=== PATIENT | female | born 1960 | race Caucasian/White ===

== ENCOUNTER 2018-04-18 07:54 | Day surgery (SDC) | payer MEDICARE ==
[2018-04-18] MEDS ORDERED: Depo-Medrol 40 MG/ML IM ONE (07:55)
[2018-04-18] MEDS ORDERED: Marcaine 0.5% SDV 10 ML IJ ONE (07:55)
[2018-04-18] MEDS ORDERED: DIPRIVAN 200 MG/20 ML IV ONE (07:55)
--- NOTE | 2018-04-18 12:28 | XRAY ---
Indication: Right hip/greater trochanter injection. Intraoperative fluoroscopy was provided for 17 seconds. 3 digital spot images submitted for interpretation demonstrates single needle tip projecting over the right femur neck. Small amount of contrast injected for needle tip placement. Correlate with intraoperative findings/report.
[2018-04-18] MEDS ORDERED: Lactated Ringers 1,000 ML IV ONE (12:36)
--- NOTE | 2018-04-18 12:45 | XRAY ---
17 seconds of fluoroscopy used in surgery for right hip/greater trochanter injection.
== END 2018-04-18 10:00 | disposition home or self-care (01) ==
LOC: SDC-PAIN 07:54
PROVIDERS: ATTEND Psychiatry & Neurology Pain Medicine
DX: M16.11 Unilateral primary osteoarthritis, right hip (principal); M70.61 Trochanteric bursitis, right hip
CPT/HCPCS: 20610; 73501; 76000; 82962; J1030; J2704; Q9966

== ENCOUNTER 2019-11-20 07:56 | Day surgery (SDC) | payer MEDICARE ==
[2019-11-20] MEDS ORDERED: Depo-Medrol 40 MG/ML IM ONE (07:57)
[2019-11-20] MEDS ORDERED: Marcaine 0.5% SDV 10 ML IM ONE (07:57)
[2019-11-20] MEDS ORDERED: Ketamine HCl 50 MG/ML ONE (09:57)
[2019-11-20] MEDS ORDERED: DIPRIVAN 200 MG/20 ML IV ONE (09:57)
--- NOTE | 2019-11-20 12:28 | XRAY ---
Indication: Right greater trochanter bursa and intra-articular injections. Intraoperative fluoroscopy was provided for 25 seconds. 2 digital spot images submitted for interpretation demonstrates needle tip projecting just lateral to the right greater trochanter and a second needle tip just lateral to the femur neck. Small amount of contrast injected for both needle tip placement. Correlate with intraoperative findings/report.
--- NOTE | 2019-11-20 14:36 | XRAY ---
25 seconds of fluoroscopy was used in surgery for a right greater trochanteric bursa injection and right intra-articular hip injection.
[2019-11-20] MEDS ORDERED: Lactated Ringers 2,000 ML IV ONE (14:52)
== END 2019-11-20 10:25 | disposition home or self-care (01) ==
LOC: SDC-PAIN 07:56
PROVIDERS: ATTEND Psychiatry & Neurology Pain Medicine
DX: M16.11 Unilateral primary osteoarthritis, right hip (principal); M70.61 Trochanteric bursitis, right hip; I12.9 Hypertensive chronic kidney disease with stage 1 through stage 4 chronic kidney disease, or unspecified chronic kidney disease; E11.22 Type 2 diabetes mellitus with diabetic chronic kidney disease; N18.2 Chronic kidney disease, stage 2 (mild); Z79.899 Other long term (current) drug therapy
CPT/HCPCS: 20610; 73502; 77002; 82962; J1030; J2704; Q9966

== ENCOUNTER 2020-12-16 07:35 | Day surgery (SDC) | payer MEDICARE ==
[2020-12-16] MEDS ORDERED: BUPIVACAINE 0.5% VIAL IJ ONE (07:36)
[2020-12-16] MEDS ORDERED: Depo-Medrol 40 MG/ML IM ONE (07:36)
[2020-12-16] MEDS ORDERED: DIPRIVAN 200 MG/20 ML IV ONE (09:24)
--- NOTE | 2020-12-16 16:06 | XRAY ---
40 seconds of fluoroscopy was used in surgery for a bilateral intra-articular and greater trochanteric bursas.
[2020-12-16] MEDS ORDERED: Lactated Ringers 1,000 ML IV ONE (17:29)
== END 2020-12-16 09:53 | disposition home or self-care (01) ==
LOC: SDC-PAIN 07:35
PROVIDERS: ATTEND Psychiatry & Neurology Pain Medicine
DX: M16.0 Bilateral primary osteoarthritis of hip (principal); M70.62 Trochanteric bursitis, left hip; M70.61 Trochanteric bursitis, right hip; I12.9 Hypertensive chronic kidney disease with stage 1 through stage 4 chronic kidney disease, or unspecified chronic kidney disease; E11.22 Type 2 diabetes mellitus with diabetic chronic kidney disease; N18.30 Chronic kidney disease, stage 3 unspecified; Z79.899 Other long term (current) drug therapy
CPT/HCPCS: 20610; 73522; 77002; 82947; J1030; J2704; Q9966

== ENCOUNTER 2021-03-03 09:56 | Day surgery (SDC) | payer MEDICARE ==
[2021-03-03] MEDS ORDERED: BUPIVACAINE 0.5% VIAL IJ ONE (09:57)
[2021-03-03] MEDS ORDERED: Depo-Medrol 80 MG/ML IM ONE (09:57)
[2021-03-03] MEDS ORDERED: DIPRIVAN 200 MG/20 ML IV ONE (11:50)
--- NOTE | 2021-03-03 13:20 | XRAY ---
Indication: Right hip and greater trochanter bursa injections. Intraoperative fluoroscopy provided for 23 seconds. 2 digital spot images submitted for interpretation demonstrates needle tip projecting lateral to the right femur neck. Second needle tip lateral to the right greater trochanter. Small amount of contrast injected for both needle tip placement. Correlate with intraoperative findings/report.
--- NOTE | 2021-03-03 14:23 | XRAY ---
23 seconds of fluoroscopy was used in surgery for a right intra-articular and greater trochanteric bursa injections.
[2021-03-03] MEDS ORDERED: Lactated Ringers 1,000 ML IV ONE (17:26)
== END 2021-03-03 12:17 | disposition home or self-care (01) ==
LOC: SDC-PAIN 09:56
PROVIDERS: ATTEND Psychiatry & Neurology Pain Medicine
DX: M70.61 Trochanteric bursitis, right hip (principal); M16.11 Unilateral primary osteoarthritis, right hip; E11.9 Type 2 diabetes mellitus without complications; Z79.899 Other long term (current) drug therapy
CPT/HCPCS: 20610; 73502; 77002; 82947; J1040; J2704; Q9966

== ENCOUNTER 2021-05-26 06:56 | Day surgery (SDC) | payer MEDICARE ==
[2021-05-26] MEDS ORDERED: Depo-Medrol 40 MG/ML IM ONE (06:57)
[2021-05-26] MEDS ORDERED: BUPIVACAINE 0.5% VIAL IJ ONE (06:57)
[2021-05-26] MEDS ORDERED: DIPRIVAN 200 MG/20 ML IV ONE (06:57)
[2021-05-26] MEDS ORDERED: Ketamine HCl 50 MG/ML ONE (07:54)
[2021-05-26] MEDS ORDERED: XYLOCAINE 1% HCL 20 ML MDV ONE (08:11)
[2021-05-26] MEDS ORDERED: Lactated Ringers 1,000 ML IV ONE (09:21)
--- NOTE | 2021-05-26 10:10 | XRAY ---
Indication: Right hip and greater trochanter bursa injection. Intraoperative fluoroscopy provided for 21 seconds. 2 digital spot image submitted for interpretation demonstrates needle tip projecting lateral to right femur neck and lateral to greater trochanter. Small amount of contrast injected for both needle tip placement. Correlate with intraoperative findings/report.
--- NOTE | 2021-05-26 10:43 | XRAY ---
21 seconds of fluoroscopy was used in surgery for a right hip intra-articular and greater trochanteric bursa injection.
== END 2021-05-26 08:36 | disposition home or self-care (01) ==
LOC: SDC-PAIN 06:56
PROVIDERS: ATTEND Psychiatry & Neurology Pain Medicine
DX: M16.11 Unilateral primary osteoarthritis, right hip (principal); M70.61 Trochanteric bursitis, right hip; I10 Essential (primary) hypertension; Z79.899 Other long term (current) drug therapy
CPT/HCPCS: 20610; 73502; 77002; 82947; J1030; J2704; Q9966

== ENCOUNTER 2021-08-25 07:45 | Day surgery (SDC) | payer MEDICARE ==
[2021-08-25] MEDS ORDERED: Depo-Medrol 40 MG/ML IM ONE (07:46)
[2021-08-25] MEDS ORDERED: BUPIVACAINE 0.5% VIAL IJ ONE (07:46)
[2021-08-25] MEDS ORDERED: DIPRIVAN 200 MG/20 ML IV ONE (09:26)
[2021-08-25] MEDS ORDERED: Xylocaine-Mpf 2% 5 Ml Vial ONE (09:26)
[2021-08-25] MEDS ORDERED: Lactated Ringers 1,000 ML IV ONE (09:45)
--- NOTE | 2021-08-25 10:28 | XRAY ---
Indication: Right SI joint injection. Intraoperative fluoroscopy provided for 13 seconds. 2 digital spot image submitted for interpretation demonstrates posterior needle tip projecting over the inferior right SI joint. Correlate with intraoperative findings/report.
--- NOTE | 2021-08-25 10:32 | XRAY ---
13 seconds of fluoroscopy was used in surgery for a right SI joint injection.
== END 2021-08-25 09:50 | disposition home or self-care (01) ==
LOC: SDC-PAIN 07:45
PROVIDERS: ATTEND Psychiatry & Neurology Pain Medicine
DX: M46.1 Sacroiliitis, not elsewhere classified (principal); I10 Essential (primary) hypertension; E11.9 Type 2 diabetes mellitus without complications; Z79.899 Other long term (current) drug therapy
CPT/HCPCS: 27096; 72020; 77002; 82947; G0260; J1030; J2704

== ENCOUNTER 2022-07-13 06:52 | Day surgery (SDC) | payer MEDICARE ==
[2022-07-13] MEDS ORDERED: Depo-Medrol 40 MG/ML IM ONE (06:53)
[2022-07-13] MEDS ORDERED: BUPIVACAINE 0.5% VIAL IJ ONE (06:53)
[2022-07-13] MEDS ORDERED: DIPRIVAN 200 MG/20 ML IV ONE (08:05)
[2022-07-13] MEDS ORDERED: Xylocaine-Mpf 2% 5 Ml Vial ONE (08:09)
--- NOTE | 2022-07-13 09:55 | XRAY ---
Indication: Bilateral hip and bilateral greater trochanter bursa injections. Intraoperative fluoroscopy provided for 34 seconds. 4 digital spot images submitted for interpretation demonstrates needle tips projecting lateral to the left/right femur necks and left/right greater trochanters. Small amount of contrast injected for all 4 needle tip placement. Correlate with intraoperative findings/report.
--- NOTE | 2022-07-13 10:00 | XRAY ---
34 seconds of fluoroscopy was used in surgery for a bilateral greater trochanteric and intra-articular bursa hip injection.
[2022-07-13] MEDS ORDERED: Lactated Ringers 1,000 ML IV ONE (13:13)
== END 2022-07-13 08:40 | disposition home or self-care (01) ==
LOC: SDC-PAIN 06:52
PROVIDERS: ATTEND Psychiatry & Neurology Pain Medicine
DX: M16.0 Bilateral primary osteoarthritis of hip (principal); M70.62 Trochanteric bursitis, left hip; M70.61 Trochanteric bursitis, right hip; Z79.899 Other long term (current) drug therapy
CPT/HCPCS: 20610; 73522; 76942; 77002; 82947; J1030; J2704; Q9966

== ENCOUNTER 2022-12-28 06:47 | Day surgery (SDC) | payer MEDICARE ==
[2022-12-28] MEDS ORDERED: BUPIVACAINE 0.5% VIAL IJ ONE (06:48)
[2022-12-28] MEDS ORDERED: Depo-Medrol 40 MG/ML IM ONE (06:48)
[2022-12-28] MEDS ORDERED: DIPRIVAN 200 MG/20 ML IV ONE (08:03)
[2022-12-28] MEDS ORDERED: Xylocaine-Mpf 2% 5 Ml Vial ONE (08:07)
--- NOTE | 2022-12-28 10:31 | XRAY ---
Indication: Bilateral SI joint injection. Intraoperative fluoroscopy provided for 12 seconds. 4 digital spot images submitted for interpretation demonstrates posterior needle tip projecting over the expected left and right SI joint. Correlate with intraoperative findings/report.
--- NOTE | 2022-12-28 11:33 | XRAY ---
12 seconds of fluoroscopy was used in surgery for a bilateral sacroiliac joint injection.
[2022-12-28] MEDS ORDERED: Lactated Ringers 1,000 ML IV ONE (12:40)
== END 2022-12-28 08:33 | disposition home or self-care (01) ==
LOC: SDC-PAIN 06:47
PROVIDERS: ATTEND Psychiatry & Neurology Pain Medicine
DX: M46.1 Sacroiliitis, not elsewhere classified (principal); Z79.899 Other long term (current) drug therapy
CPT/HCPCS: 01992; 27096; 72202; 77002; 82947; G0260; J1030; J2704

== ENCOUNTER 2023-01-26 06:44 | Day surgery (SDC) | payer MEDICARE ==
[2023-01-26] MEDS ORDERED: Depo-Medrol 40 MG/ML IM ONE (06:45)
[2023-01-26] MEDS ORDERED: BUPIVACAINE 0.5% VIAL IJ ONE (06:45)
[2023-01-26] MEDS ORDERED: DIPRIVAN 200 MG/20 ML IV ONE (08:04)
[2023-01-26] MEDS ORDERED: Xylocaine-Mpf 2% 5 Ml Vial ONE (08:17)
[2023-01-26] MEDS ORDERED: Lactated Ringers 1,000 ML IV ONE (08:55)
--- NOTE | 2023-01-26 09:50 | XRAY ---
Indication: Bilateral ischial bursa injection. Intraoperative fluoroscopy provided for 21 seconds. 2 digital spot images submitted for interpretation demonstrates needle tip projecting inferior to the left and right ischial tuberosities. Small amount of contrast injected for both needle tip placement. Correlate with intraoperative findings/report.
--- NOTE | 2023-01-26 10:03 | XRAY ---
21 seconds of fluoroscopy was used in surgery for a bilateral ischial bursa injection.
== END 2023-01-26 08:40 | disposition home or self-care (01) ==
LOC: SDC-PAIN 06:44
PROVIDERS: ATTEND Psychiatry & Neurology Pain Medicine
DX: M70.62 Trochanteric bursitis, left hip (principal); M70.61 Trochanteric bursitis, right hip; Z79.899 Other long term (current) drug therapy
CPT/HCPCS: 20610; 72170; 77002; 82947; J1030; J2704; Q9966

== ENCOUNTER 2023-07-13 06:57 | Day surgery (SDC) | payer MEDICARE ==
[2023-07-13] MEDS ORDERED: Decadron 4 MG INJ IV ONE (06:58)
[2023-07-13] MEDS ORDERED: Depo-Medrol 40 MG/ML IM ONE (06:58)
[2023-07-13] MEDS ORDERED: BUPIVACAINE 0.5% VIAL IJ ONE (06:58)
[2023-07-13] MEDS ORDERED: XYLOCAINE-MPF 1% 5ML SDV IJ ONE (06:58)
[2023-07-13] MEDS ORDERED: DIPRIVAN 200 MG/20 ML IV ONE (08:22)
[2023-07-13] MEDS ORDERED: Xylocaine-Mpf 2% 5 Ml Vial ONE (08:23)
--- NOTE | 2023-07-13 10:55 | XRAY ---
Indication: Bilateral piriformis and ischial bursa injection. Intraoperative fluoroscopy provided for 43 seconds. 5 digital spot image submitted for interpretation demonstrates posterior needle tip projecting over left/right piriformis and inferior to left/right ischial tuberosities. Small amount of contrast injected for all needle tip. Correlate with intraoperative findings/report.
--- NOTE | 2023-07-13 11:20 | XRAY ---
43 seconds of fluoroscopy was used in surgery for a bilateral piriformis and ischial bursa injection.
[2023-07-13] MEDS ORDERED: Lactated Ringers 1,000 ML IV ONE (12:03)
== END 2023-07-13 09:07 | disposition home or self-care (01) ==
LOC: SDC-PAIN 06:57
PROVIDERS: ATTEND Psychiatry & Neurology Pain Medicine
DX: M79.18 Myalgia, other site (principal); E11.9 Type 2 diabetes mellitus without complications; M70.62 Trochanteric bursitis, left hip; M70.61 Trochanteric bursitis, right hip
CPT/HCPCS: 20552; 20610; 72170; 77002; 82947; J1030; J1100; J2704; Q9966

== ENCOUNTER 2023-12-06 10:57 | Day surgery (SDC) | payer MEDICARE ==
[2023-12-06] MEDS ORDERED: DIPRIVAN 200 MG/20 ML IV ONE (12:41)
[2023-12-06] MEDS ORDERED: Xylocaine-Mpf 2% 5 Ml Vial ONE (12:45)
[2023-12-06] MEDS ORDERED: Lactated Ringers 1,000 ML IV ONE (12:57)
--- NOTE | 2023-12-06 14:09 | XRAY ---
Indication: Bilateral ischial bursa injections. Intraoperative fluoroscopy provided for 26 seconds. 2 digital spot images submitted for interpretation demonstrates posterior needle tips projecting over the left and right inferior ischial tuberosities. Small amount of contrast injected for both needle tip placement. Correlate with intraoperative findings/report.
--- NOTE | 2023-12-06 14:13 | XRAY ---
26 seconds of fluoroscopy was used in surgery for a bilateral ischial bursa injection.
== END 2023-12-06 13:10 | disposition home or self-care (01) ==
LOC: SDC-PAIN 10:57
PROVIDERS: ATTEND Psychiatry & Neurology Pain Medicine
DX: M70.62 Trochanteric bursitis, left hip (principal); M70.61 Trochanteric bursitis, right hip; E11.9 Type 2 diabetes mellitus without complications
CPT/HCPCS: 20610; 72170; 77002; 82947; J2704; Q9966

== ENCOUNTER 2024-06-12 06:55 | Day surgery (SDC) | payer MEDICARE, OTHER ==
[2024-06-12] MEDS ORDERED: propofoL IV ONE (08:28)
[2024-06-12] MEDS ORDERED: Xylocaine-Mpf 2% 5 Ml Vial ONE (08:29)
--- NOTE | 2024-06-12 10:07 | XRAY ---
Indication: Bilateral hip and greater trochanter bursa. Intraoperative fluoroscopy provided for 28 seconds. 5 digital spot image submitted for interpretation demonstrates needle tips projecting lateral to left/right femur necks and left/right greater trochanters. Small amount of contrast injected for all needle tip placement. Correlate with intraoperative findings/report.
--- NOTE | 2024-06-12 10:41 | XRAY ---
28 seconds of fluoroscopy was used in surgery for a bilateral hip and greater trochanteric bursa injection.
== END 2024-06-12 09:03 | disposition home or self-care (01) ==
LOC: SDC-PAIN 06:55
PROVIDERS: ATTEND Psychiatry & Neurology Pain Medicine
DX: M16.0 Bilateral primary osteoarthritis of hip (principal); M70.62 Trochanteric bursitis, left hip; M70.61 Trochanteric bursitis, right hip; E11.9 Type 2 diabetes mellitus without complications
CPT/HCPCS: 20610; 73522; 77002; 82947; J2704; Q9966

== ENCOUNTER 2024-09-19 07:01 | Day surgery (SDC) | payer MEDICARE, OTHER ==
[2024-09-19] MEDS ORDERED: BUPIVACAINE 0.5% VIAL IJ ONE (07:02)
[2024-09-19] MEDS ORDERED: Depo-Medrol 40 MG/ML IM ONE (07:02)
[2024-09-19] MEDS ORDERED: Xylocaine-Mpf 2% 5 Ml Vial ONE (08:42)
[2024-09-19] MEDS ORDERED: propofoL IV ONE (08:42)
--- NOTE | 2024-09-19 19:25 | XRAY ---
26 seconds of fluoroscopy was used in surgery for a bilateral hip and greater trochanteric bursa injection.
--- NOTE | 2024-09-19 19:45 | XRAY ---
Indication: Bilateral hip and greater trochanter bursa injection. Intraoperative fluoroscopy provided for 26 seconds. 5 digital spot image submitted for interpretation demonstrates needle tips projecting lateral to left/right femur necks and left/right greater trochanters. Small amount of contrast injected for needle tip placement. Correlate with intraoperative findings/report.
== END 2024-09-19 09:11 | disposition home or self-care (01) ==
LOC: SDC-PAIN 07:01
PROVIDERS: ATTEND Psychiatry & Neurology Pain Medicine
DX: M16.0 Bilateral primary osteoarthritis of hip (principal); M70.62 Trochanteric bursitis, left hip; M70.61 Trochanteric bursitis, right hip; E11.9 Type 2 diabetes mellitus without complications
CPT/HCPCS: 20610; 73522; 77002; 82947; J2704; Q9966

== ENCOUNTER 2025-03-13 15:24 | Emergency (ER) | payer MEDICARE, OTHER ==
--- NOTE | 2025-03-13 15:39 | ERPHSYRPT ---
- History of Present Illness Time Seen by Provider: 03/13/25 15:39 Source: patient, family Exam Limitations: no limitations Physician History: This is a 64-year-old white female patient who presents to the emergency department accompanied by significant other and is a patient of Dr. Healy with complaint of generalized weakness and bodyaches with associated nausea runny nose and mild abdominal cramping diffusely. She has not had any vomiting or diarrhea symptoms. She denies cough. She denies shortness of breath. She denies chest pain. He has not been exposed to anyone with similar symptoms. Timing/Duration: week(s) (2) Severity: mild Associated Symptoms: nausea, abdominal pain (Mild diffuse cramping), weakness, No shortness of breath, No chest pain Allergies/Adverse Reactions: erythromycin base Allergy (Verified 03/13/25 15:44) nitrofurantoin [From Macrobid] Allergy (Verified 03/13/25 15:44) Sulfa (Sulfonamide Antibiotics) Allergy (Verified 03/13/25 15:44) metoclopramide [From Reglan] Adverse Reaction (Verified 03/13/25 15:44) Home Medications: Alirocumab [Praluent Pen] 150 mg SQ WEEKLY 03/13/25 [History] Ezetimibe 10 mg [Zetia 10 MG] 10 mg PO DAILY 03/13/25 [History] Fluoxetine HCl 60 mg PO DAILY 03/13/25 [History] Losartan Potassium [Cozaar] 25 mg PO DAILY 03/13/25 [History] Oxycodone / APAP 10/325 mg [Oxycodone-Acetaminophen 10-325] 1 tablet PO TID 03/13/25 [History] Prochlorperazine Maleate 10 mg PO TID PRN 03/13/25 [History] Ropinirole HCl 3 mg PO DAILY 03/13/25 [History] Tirzepatide [Mounjaro] 15 mg SQ WEEKLY 03/13/25 [History] hydrOXYzine HCL [Hydroxyzine HCl] 50 mg PO DAILY 03/13/25 [History] Travel Risk - International Travel Have you traveled outside of the country in past 3 weeks: No - Emerging Infectious Disease Are you exhibiting symptoms associated with any current EIDs: Yes Symptoms: Abdominal Pain (Mild diffuse cramping), Headaches/Body Aches/, Other (Please Comment) (Nausea) - Review of Systems Constitutional: Weakness Eyes: No Symptoms Ears, Nose, & Throat: No Symptoms Respiratory: No Symptoms Abdominal/Gastrointestinal: Abdominal Pain (Mild diffuse cramping), Nausea, Appetite Changes, No Vomiting, No Diarrhea, No Constipation Genitourinary Symptoms: No Symptoms Musculoskeletal: Arthralgias, Myalgias Skin: No Symptoms Neurological: No Symptoms Psychological: No Symptoms Endocrine: No Symptoms Hematologic/Lymphatic: No Symptoms Immunological/Allergic: No Symptoms All Other Systems: Reviewed and Negative - Past Medical History Pertinent Past Medical History: Yes - Nursing Vital Signs Nursing Vital Signs: Initial Vital Signs Temperature 98 F 03/13/25 15:31 Pulse Rate 80 03/13/25 15:31 Respiratory Rate 12 03/13/25 15:31 Blood Pressure 128/91 03/13/25 15:31 O2 Sat by Pulse Oximetry 98 03/13/25 15:31 Pain Scale Pain Intensity 8 - Physical Exam General Appearance: no apparent distress, alert, anxiety, thin Eye Exam: PERRL/EOMI, eyes nml inspection Ears, Nose, Throat Exam: normal ENT inspection, moist mucous membranes Neck Exam: normal inspection, non-tender, supple, full range of motion Respiratory Exam: normal breath sounds, lungs clear, airway intact, No chest tenderness, No respiratory distress Cardiovascular Exam: regular rate/rhythm, normal heart sounds, normal peripheral pulses Gastrointestinal/Abdomen Exam: soft, normal bowel sounds, other (No significant tenderness on exam), No guarding, No rebound Pelvic Exam: not done Rectal Exam: not done Back Exam: normal inspection, normal range of motion, No CVA tenderness, No vertebral tenderness Extremity Exam: normal inspection, normal range of motion, pelvis stable Neurologic Exam: alert, oriented x 3, cooperative, 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 No acute ischemic changes on today's twelve-lead EKG.) Ordered Tests: Active Orders 24 hr Category Date Time Status [employer] Supervisor STAT Care 03/13/25 15:58 Active EKG-ER Only STAT Care 03/13/25 15:58 Active IV Insertion STAT Care 03/13/25 15:58 Active Pulse Oximetry (ED) STAT Care 03/13/25 15:58 Active CBC W DIFF Stat Lab 03/13/25 16:10 Completed CMP Stat Lab 03/13/25 16:10 Completed CULTURE,URINE Stat Lab 03/13/25 15:58 Received MAGNESIUM Stat Lab 03/13/25 16:10 Completed MONO SCREEN Stat Lab 03/13/25 16:10 Completed TROPONIN Q4H Lab 03/13/25 16:10 Completed TROPONIN Q4H Lab 03/13/25 20:00 Ordered TROPONIN Q4H Lab 03/14/25 00:00 Ordered UA W/RFX UR CULTURE Stat Lab 03/13/25 15:58 Completed Medication Summary Discontinued Medications Generic Name Dose Route Start Last Admin Trade Name Freq PRN Reason Stop Dose Admin Sodium Chloride 1,000 mls @ 999 mls/hr 03/13/25 15:58 03/13/25 17:46 Sodium Chloride 0.9% 1000 Ml IV 03/13/25 16:58 Infused .Q1H1M STA Infusion Sodium Chloride Confirm 03/13/25 16:09 Sodium Chloride 0.9% 1000 Ml Administered 03/13/25 16:10 Dose 1,000 mls @ ud .ROUTE .STK-MED ONE Lab/Rad Data: Laboratory Result Diagrams 03/13/25 16:10 03/13/25 16:10 Laboratory Results 03/13/25 03/13/25 03/13/25 Range/Units 16:12 16:10 16:10 WBC (3.98-10.04) x10^3/uL RBC (3.93-5.22) x10^6/uL Hgb (11.2-15.7) g/dL Hct (34.1-44.9) % MCV (79.4-94.8) fL MCH (25.6-32.2) pg MCHC (32.2-35.5) g/dL RDW (11.7-14.4) % Plt Count (182-369) x10^3/uL MPV (9.4-12.3) fL Gran % (34.0-71.1) % Immature Gran % (Auto) (0.001-0.429) % Nucleat RBC Rel Count (0.00-0.2) % Eos # (Auto) (0.04-0.36) x10^3/uL Immature Gran # (Auto) (0.001-0.031) x10^3u/L Absolute Lymphs (auto) (1.18-3.74) x10^3/uL Absolute Monos (auto) (0.24-0.86) x10^3/uL Absolute Nucleated RBC (0.00-0.012) x10^3u/L Lymphocytes % (19.3-51.7) % Monocytes % (4.7-12.5) % Eosinophils % (0.7-5.8) % Basophils % (0.1-1.2) % Absolute Granulocytes (1.56-6.13) x10^3/uL Basophils # (0.01-0.08) x10^3/uL Sodium (135-145) mmol/L Potassium (3.5-5.1) mmol/L Chloride (98-107) mmol/L Carbon Dioxide (22-30) mmol/L Anion Gap (5-15) MEQ/L BUN (7-17) mg/dL Creatinine (0.52-1.04) mg/dL Estimated GFR ML/MIN Glucose (74-106) mg/dL Calcium (8.4-10.2) mg/dL Magnesium (1.6-2.3) mg/dL Total Bilirubin (0.2-1.3) mg/dL AST (14-36) U/L ALT (0-35) U/L Alkaline Phosphatase (38-126) U/L Troponin I < 0.012 (0.000-0.033) ng/mL Serum Total Protein (6.3-8.2) g/dL Albumin (3.5-5.0) g/dL Urine Color (Yellow) Urine Appearance (Clear) Urine pH (4.6-8.0) Ur Specific Murdock (1.005-1.030) Urine Protein (Negative) Urine Glucose (UA) (Negative) mg/dL Urine Ketones (Negative) Urine Blood (Negative) Urine Nitrite (Negative) Urine Bilirubin (Negative) Urine Urobilinogen (0.2) mg/dL Ur Leukocyte Esterase (Negative) U Hyaline Cast (Auto) (0-2) /LPF Urine Microscopic RBC (0-5) /HPF Urine Microscopic WBC (0-5) /HPF Ur Epithelial Cells (None Seen) /HPF Urine Bacteria (None Seen) /HPF Urine Culture Reflexed (NO) Monoscreen NEGATIVE (NEGATIVE) Influenza Type A Ag NEGATIVE (NEGATIVE) Influenza Type B Ag NEGATIVE (NEGATIVE) RSV (PCR) NEGATIVE (NEGATIVE) SARS-CoV-2 (PCR) NEGATIVE (NEGATIVE) 03/13/25 03/13/25 03/13/25 Range/Units 16:10 16:10 15:58 WBC 8.3 (3.98-10.04) x10^3/uL RBC 5.25 H (3.93-5.22) x10^6/uL Hgb 15.4 (11.2-15.7) g/dL Hct 46.3 H (34.1-44.9) % MCV 88.2 (79.4-94.8) fL MCH 29.3 (25.6-32.2) pg MCHC 33.3 (32.2-35.5) g/dL RDW 13.3 (11.7-14.4) % Plt Count 291 (182-369) x10^3/uL MPV 10.8 (9.4-12.3) fL Gran % 65.5 (34.0-71.1) % Immature Gran % (Auto) 0.5 H (0.001-0.429) % Nucleat RBC Rel Count 0.0 (0.00-0.2) % Eos # (Auto) 0.10 (0.04-0.36) x10^3/uL Immature Gran # (Auto) 0.04 H (0.001-0.031) x10^3u/L Absolute Lymphs (auto) 2.00 (1.18-3.74) x10^3/uL Absolute Monos (auto) 0.66 (0.24-0.86) x10^3/uL Absolute Nucleated RBC 0.00 (0.00-0.012) x10^3u/L Lymphocytes % 24.2 (19.3-51.7) % Monocytes % 8.0 (4.7-12.5) % Eosinophils % 1.2 (0.7-5.8) % Basophils % 0.6 (0.1-1.2) % Absolute Granulocytes 5.40 (1.56-6.13) x10^3/uL Basophils # 0.05 (0.01-0.08) x10^3/uL Sodium 137 (135-145) mmol/L Potassium 3.6 (3.5-5.1) mmol/L Chloride 105 (98-107) mmol/L Carbon Dioxide 18 L (22-30) mmol/L Anion Gap 17.6 H (5-15) MEQ/L BUN 34 H (7-17) mg/dL Creatinine 2.07 H (0.52-1.04) mg/dL Estimated GFR 26.1 ML/MIN Glucose 167 H (74-106) mg/dL Calcium 10.6 H (8.4-10.2) mg/dL Magnesium 1.7 (1.6-2.3) mg/dL Total Bilirubin 0.70 (0.2-1.3) mg/dL AST 45 H (14-36) U/L ALT 70 H (0-35) U/L Alkaline Phosphatase 100 (38-126) U/L Troponin I (0.000-0.033) ng/mL Serum Total Protein 8.6 H (6.3-8.2) g/dL Albumin 4.7 (3.5-5.0) g/dL Urine Color Yellow (Yellow) Urine Appearance Clear (Clear) Urine pH 5.5 (4.6-8.0) Ur Specific [place] 1.020 (1.005-1.030) Urine Protein 30 (Negative) Urine Glucose (UA) Negative (Negative) mg/dL Urine Ketones Trace A (Negative) Urine Blood Negative (Negative) Urine Nitrite Negative (Negative) Urine Bilirubin Negative (Negative) Urine Urobilinogen 0.2 (0.2) mg/dL Ur Leukocyte Esterase Moderate A (Negative) U Hyaline Cast (Auto) None Seen (0-2) /LPF Urine Microscopic RBC 0-2 (0-5) /HPF Urine Microscopic WBC 11-20 A (0-5) /HPF Ur Epithelial Cells Few (None Seen) /HPF Urine Bacteria Rare A (None Seen) /HPF Urine Culture Reflexed YES (NO) Monoscreen (NEGATIVE) Influenza Type A Ag (NEGATIVE) Influenza Type B Ag (NEGATIVE) RSV (PCR) (NEGATIVE) SARS-CoV-2 (PCR) (NEGATIVE) - Progress Progress: improved, re-examined Progress Note: 03/13/25 16:19 My medical decision making and the assignment of moderate complexity of this patient's medical issue today is based on review of the patient's past medical history, review of the patient's medication list, review of the patient drug allergy list, history of present illness and physical findings on examination. The workup in this patient includes placement of intravenous line, infusion normal saline solution, infusion of Zofran, CBC, CMP, magnesium level, urinalysis, twelve-lead EKG viral swabs, monotest, troponin level. Differential diagnosis includes was not limited to electrolyte abnormalities, anemia, dehydration, urinary tract infection, arrhythmia, myocardial infarction, viral illness 03/13/25 18:39 I interpreted the patient's laboratory data results. Based on laboratory data results, the patient does appear to have chronic renal disease. She has a urinary tract infection and there was trace dehydration present. Her viral swabs are negative. No other acute, emergent medical findings based on her laboratory data results. Counseled pt/family regarding: lab results, diagnosis, need for follow-up Medical Desision Making - Independent Historian Additional History obtained from: Spouse - Diagnostic Testing Diagnostic test were ordered, analyzed, and reviewed by me: Yes - Risk of complications Low Risk: Low risk of morbidity from additional dx testing or treatment The pt has a mod risk of morbidity or mortality based on: Need for prescription drug management - Departure Departure Disposition: Home Clinical Impression: UTI (urinary tract infection), Chronic renal disease, Mild dehydration Condition: Stable Critical Care Time: No Referrals: SOFI HEALY MD [Primary Care Provider, INTERNAL MEDICINE] - Follow up/PCP as directed Additional Instructions: Drink plenty of clear liquids. Take your antibiotics and other medications as prescribed. Call your primary care provider tomorrow, 03/14/2025, to make arrangements for follow-up appointment for further evaluation and management. Prescriptions: Cefdinir 300 mg PO DAILY #5 cap
[2025-03-13 16:03] VITALS: TEMP 98
[2025-03-13 16:11] LABS: BASOPHIL % 0.6 % (0.1-1.2); Basophil (Absolute #) 0.05 x10^3/uL (0.01-0.08); Eosinophil (Absolute #) 0.10 x10^3/uL (0.04-0.36); Hematocrit 46.3 % (34.1-44.9); Hemoglobin 15.4 g/dL (11.2-15.7); IMMATURE GRAN # 0.04 x10^3u/L (0.001-0.031); IMMATURE GRAN % 0.5 % (0.001-0.429); Lymphocyte (Absolute #) 2.00 x10^3/uL (1.18-3.74); Mean Corpuscular Hemoglobin 29.3 pg (25.6-32.2); Mean Corpuscular Hgb Concent. 33.3 g/dL (32.2-35.5); Monocyte (Absolute #) 0.66 x10^3/uL (0.24-0.86); NUCLEATED RBC # 0.00 x10^3u/L (0.00-0.012); NUCLEATED RBC % 0.0 % (0.00-0.2); Platelet Count 291 x10^3/uL (182-369); Red Blood Count 5.25 x10^6/uL (3.93-5.22); White Blood Count 8.3 x10^3/uL (3.98-10.04)
[2025-03-13 16:26] LABS: Calcium 10.6 mg/dL (8.4-10.2); Carbon Dioxide 18.0 mmol/L (22-30); Creatinine 1 2.07 mg/dL (0.52-1.04); EST GLOMERULAR FILTRATION RATE 26.1 ML/MIN; Glucose 167.0 mg/dL (74-106); Potassium 3.6 mmol/L (3.5-5.1); SGOT/AST 45.0 U/L (14-36); SGPT/ALT 70.0 U/L (0-35); Total Protein 8.6 g/dL (6.3-8.2)
[2025-03-13 16:48] LABS: INFLUENZA A NEGATIVE (NEGATIVE); INFLUENZA B NEGATIVE (NEGATIVE); RESPIRATORY SYNCTIAL VIRUS NEGATIVE (NEGATIVE); SARS-CoV-2 Xpert Express NEGATIVE (NEGATIVE)
[2025-03-13 18:02] LABS: Glucose, Urine Negative (Negative); Protein,Urine Dip 30 (Negative); RBC 0-2 /HPF (0-5)
[2025-03-13 18:07] VITALS: O2SAT 98
[2025-03-13] MEDS ORDERED: ROCEPHIN 1 GM / 100 ML NaCl 1 GM/100 ML IVPB IV ONE (18:45)
[2025-03-13] MEDS: ROCEPHIN 1 GM / 100 ML NaCl 1 GM/100 ML IVPB IV ONE (18:45)
[2025-03-13 19:07] VITALS: BP 140/80; PULSE 71; RESP 21
== END 2025-03-13 19:27 | disposition home or self-care (01) ==
LOC: ED 15:24
DX: N39.0 Urinary tract infection, site not specified (principal); N18.9 Chronic kidney disease, unspecified; E86.0 Dehydration; R53.1 Weakness; M79.10 Myalgia, unspecified site; Z79.891 Long term (current) use of opiate analgesic; Z79.899 Other long term (current) drug therapy